=== PATIENT | male | born 1980 | race Caucasian/White ===

== ENCOUNTER 2023-12-07 10:08 | Outpatient (CLI) | payer MEDICARE, SELFPAY ==
--- NOTE | ~2023-12-07 | MR_ITS ---
MRI of the right shoulder Technique: Axial proton-density fat-sat images, coronal proton density fat-sat and T2 fat-sat images, and sagittal T1-weighted and T2 fat-sat images were acquired. Clinical History: Pain Findings: There is minimal AC joint degenerative change. Cortical clavicular, coracoacromial, and cor acohumeral ligaments are intact. Supraspinatus and infraspinatus tendons are intact, without partial or full-thickness tear. Subscapul destinee tendon is intact. Tendon of the long head of the biceps is intact. There is marrow edema impaction deformity of the posterior superior humeral head, consistent with acu te Hill-Sachs impaction deformity. There is also an acute, oblique, mildly displaced fracture of the anteroinferior glenoid, consistent with osseous Bankart lesion, again probably related to recent disl ocation injury. There is associated soft tissue tearing of the anteroinferior labrum extending to the anterior portion at the equator, probably to the anterosuperior portion. Inferior glenohumeral ligament is mildly thickened, likely due to recent posterior hepatic change. Th ere is minimal glenohumeral joint effusion. No fluid distention of the subcoracoid/subdeltoid bursa. No muscle atrophy or edema. Impression: Osseous and soft tissue Bankart lesions at the anteroinferior glenoid/labrum, with associated acute H ill-Sachs impaction deformity. These posttraumatic injuries are consistent with recent anteroinferior humeral head dislocation. Reviewed, dictated and finalized at [facility]. TH CARE / MEDICAL JOB TITLES Impression: Osseous and soft tissue Bankart lesions at the anteroinferior glenoid/labrum, w ith associated acute Hill-Sachs impaction deformity. These posttraumatic injuri es are consistent with recent anteroinferior humeral head dislocation.
== END 2023-12-07 10:09 ==
LOC: MICIMG 10:10
PROVIDERS: PCP Family Medicine; Visit Provider Physician Assistant
DX: M25.511 Pain in right shoulder (principal); G89.29 Other chronic pain
CPT/HCPCS: 73221